=== PATIENT | male | born 1960 | race American Indian/Alaskan Native ===

== ENCOUNTER 2021-03-21 12:53 | Outpatient (CLI) | payer OTHER ==
[2021-03-21] MEDS ORDERED: ALBUTEROL 2.5 MG/3 ML NEBU IH ONE (13:31)
== END 2021-03-21 12:54 | disposition home or self-care (01) ==
LOC: PF 12:53
PROVIDERS: ATTEND Internal Medicine
DX: J45.909 Unspecified asthma, uncomplicated (principal); M54.5 Low back pain; L98.9 Disorder of the skin and subcutaneous tissue, unspecified; K31.89 Other diseases of stomach and duodenum
CPT/HCPCS: 94010